=== PATIENT | male | born 1985 | race Caucasian/White ===

== ENCOUNTER 2016-07-04 23:54 | Observation (INO) | payer SELFPAY ==
[~2016-07-04] VITALS: Ht 185.4 cm; Wt 113.5 kg
[2016-07-04] MEDS ORDERED: SODIUM CHLOR 0.9% 1000 ML INJ 1,000 ML IV SCH (23:59)
[2016-07-05] VITALS (14 sets, daily range): BP systolic 103–141; BP diastolic 54–86; PULSE 68–122; RESP 17–20; TEMP 97.2–98.3; O2SAT 94–99
[2016-07-05] MEDS ORDERED: FAMOTIDINE 20 MG/2 ML VIAL IV PUSH ONE
[2016-07-05] MEDS ORDERED: diphenhydrAMINE HCL 50 MG/ML VIAL IVP ONE
[2016-07-05] MEDS ORDERED: methylPREDNISolone SOD SUCC 125 MG/2 ML VIAL IVP ONE
[2016-07-05] MEDS ORDERED: ONDANSETRON HCL 4 MG/2 ML VIAL IV PUSH ONE
[2016-07-05] MEDS ORDERED: RESP: ALBUTEROL 2.5 MG/3 ML NEB (SCH) INH ONE
[2016-07-05] MEDS: RESP: ALBUTEROL 2.5 MG/3 ML NEB (PRN) ONE ×2 (00:09→00:25)
[2016-07-05 00:32] LABS: AUTOMATED NEUTROPHIL # 3.1 TH/MM3 (1.8-7.7); BASOPHIL % 0.2 % (0.0-2.0); EOSINOPHIL # 0.1 TH/MM3 (0-0.4); EOSINOPHIL % 0.9 % (0.0-4.0); HEMO FLAGS DIFF FINAL; LYMPH % 55.1 % (9.0-44.0); LYMPHOCYTE # 4.6 TH/MM3 (1.0-4.8); MEAN CELL VOLUME 88.3 FL (80.0-100.0); MEAN CORPUSCULAR HEMOGLOBIN 28.5 PG (27.0-34.0); MEAN CORPUSCULAR HGB CONC 32.3 % (32.0-36.0); MONO % 6.1 % (0.0-8.0); NEUT % 37.7 % (16.0-70.0); PLATELET COUNT 277 TH/MM3 (150-450); RED BLOOD COUNT 6.12 MIL/MM3 (4.50-5.90); WHITE BLOOD COUNT 8.3 TH/MM3 (4.0-11.0)
[2016-07-05] MEDS ORDERED: SODIUM CHLOR 0.9% 1000 ML INJ 1,000 ML IV SCH ×2 (00:49)
[2016-07-05] MEDS ORDERED: ONDANSETRON HCL 4 MG/2 ML VIAL IM ONE (01:00)
[2016-07-05] MEDS ORDERED: methylPREDNISolone SOD SUCC 125 MG/2 ML VIAL IM ONE (01:00)
[2016-07-05] MEDS ORDERED: diphenhydrAMINE HCL 50 MG/ML VIAL IM ONE (01:00)
[2016-07-05] MEDS ORDERED: SODIUM CHLORIDE 0.9% FLUSH 5 ML FLUSH IVF PRN ×3 (01:00→02:45)
[2016-07-05] MEDS ORDERED: EPINEPHrine HCL (1:1000) 1 MG/ML VIAL IM ONE ×2 (01:00)
[2016-07-05] MEDS ORDERED: LORazepam 2 MG/ML VIAL ONE (01:05)
[2016-07-05] MEDS: RESP: ALBUTEROL 2.5 MG/3 ML NEB (SCH) INH ×3 (01:15→01:57)
[2016-07-05 02:04] LABS: POTASSIUM 3.9 MEQ/L (3.5-5.1)
[2016-07-05 02:07] LABS: BICARBONATE 26.5 MEQ/L (21.0-32.0)
[2016-07-05] MEDS ORDERED: LORazepam 2 MG/ML VIAL IM ONE (02:15)
[2016-07-05] MEDS ORDERED: SODIUM CHLORIDE 0.9% FLUSH 5 ML FLUSH FLUSH PRN (02:30)
[2016-07-05] MEDS ORDERED: methylPREDNISolone SOD SUCC 40 MG/1 ML VIAL IV PUSH PRN (02:30)
[2016-07-05] MEDS ORDERED: NALOXONE HCL 0.4 MG/ML AMP IV PRN (02:30)
[2016-07-05] MEDS ORDERED: diphenhydrAMINE HCL 50 MG/ML VIAL IV PUSH PRN (02:30)
--- NOTE | 2016-07-05 03:42 | PD ---
HPI Chief Complaint: Allergic/Adverse Reaction Time Seen by Provider: 23:59 Travel History International Travel<30 days: No Contact w/Intl Traveler<30days: No Traveled to known affect area: No History of Present Illness HPI 30-year-old male presents to the emergency department by private transportation for acute allergic reaction onset just prior to arrival to the emergency department. Patient is able to speak complains of lip tongue and throat swelling along with generalized urticaria nausea vomiting and feeling as if he might pass out. No chest pain. Patient does complain of shortness of breath. No abdominal pain. Patient has had nausea and vomiting. Prior history of similar type of allergic reaction to molds, cat dander, and bee stings. Patient states drank Propel just prior to arrival to the emergency department and just prior to onset of symptoms. Patient was also exposed to cat dander earlier in the day but not just prior to arrival to the emergency department. Patient also exposed to reported droppings as has moist as pets. Patient has known allergy to molds. PFSH Past Medical History Narrative Medical Asthma allergic reactions open-heart surgery for possible cardiac aneurysm tube thoracostomy tobacco use substance abuse; nursing notes reviewed Asthma: Yes (WHEN A CHILD) Cancer: No Diminished Hearing: No Endocrine: No Genitourinary: No Immune Disorder: No Musculoskeletal: Yes Neurologic: No Psychiatric: No Respiratory: Yes Immunizations Current: Yes Tetanus Vaccination: Unknown Influenza Vaccination: No Past Surgical History Cardiac Surgery: Yes Other Surgery: Yes (OPEN HEART, 2 CHEST TUBE'S) Social History Alcohol Use: No Tobacco Use: Yes (1 PPD) Substance Use: Yes (opiates) Allergies-Medications (Allergen,Severity, Reaction): Coded Allergies: Cat Dander (Verified Allergy, Severe, 07/05/16) Bee Sting (Unverified Adverse Reaction, Severe, SWELLING -SOB, 07/05/16) Reported Meds & Prescriptions Reported Meds & Active Scripts Active No Active Prescriptions or Reported Medications Review of Systems Except as stated in HPI: all other systems reviewed are Neg General / Constitutional: No: Fever, Chills HENT: No: Congestion Cardiovascular: No: Chest Pain or Discomfort Respiratory: Positive: Shortness of Breath, Wheezing Gastrointestinal: Positive: Nausea, Vomiting, No: Diarrhea, Abdominal Pain Genitourinary: No: Flank Pain Musculoskeletal: No: Myalgias, Arthralgias Skin: Positive Rash, Positive Itching, Positive Hives Neurologic: Positive: Weakness, Dizziness, No: Syncope Psychiatric: Positive: Anxiety Endocrine: No: Heat Intolerance Hematologic/Lymphatic: No: Easy Bruising Physical Exam Narrative GENERAL: Well-developed well-nourished male in obvious distress, respiratory distress with diffuse urticaria and visible lip angioedema without stridor. SKIN: Warm and dry. HEAD: Atraumatic. Normocephalic. EYES: Pupils equal and round. No scleral icterus. Bilateral injection without drainage. ENT: No nasal bleeding or discharge. Mucous membranes pink and moist. Lips edema mild glossal edema airway is patent. NECK: Trachea midline. No JVD. CARDIOVASCULAR: Increased Regular rate and rhythm. RESPIRATORY: No accessory muscle use. Clear to auscultation. Breath sounds equal bilaterally. Bilateral wheezing. GASTROINTESTINAL: Abdomen soft, non-tender, nondistended. Hepatic and splenic margins not palpable. MUSCULOSKELETAL: Extremities without clubbing, cyanosis, or edema. No obvious deformities. NEUROLOGICAL: Awake and alert. No obvious cranial nerve deficits. Motor grossly within normal limits. Five out of 5 muscle strength in the arms and legs. Normal speech. PSYCHIATRIC: Appropriate mood and affect; insight and judgment normal. Data Data Last Documented VS Vital Signs Date Time Temp Pulse Resp B/P Pulse Ox O2 Delivery O2 Flow Rate FiO2 07/05/16 01:55 96 Nasal Cannula 2.00 07/05/16 01:45 94 18 125/73 Orders Basic Metabolic Panel (Bmp) (07/04/16 23:59) Complete Blood Count With Diff (07/04/16 23:59) Ecg Monitoring (07/04/16 23:59) Iv Access Insert/Monitor (07/04/16 23:59) Oximetry (07/04/16 23:59) Diphenhydramine Inj (Benadryl Inj) (07/05/16 00:00) Methylprednisolone So Succ Inj (Solumedr (07/05/16 00:00) Famotidine Inj (Pepcid Inj) (07/05/16 00:00) Albuterol Neb (Albuterol Neb) (07/05/16 00:00) Sodium Chlor 0.9% 1000 Ml Inj (Ns 1000 M (07/04/16 23:59) Sodium Chloride 0.9% Flush (Ns Flush) (07/05/16 00:00) Epinephrine (1:1000) Inj (Adrenalin (1:1 (07/05/16 00:00) Ondansetron Inj (Zofran Inj) (07/05/16 00:00) Albuterol Neb (Albuterol Neb) (07/05/16 00:24) Diphenhydramine Inj (Benadryl Inj) (07/05/16 01:00) Methylprednisolone So Succ Inj (Solumedr (07/05/16 01:00) Albuterol Neb (Albuterol Neb) (07/05/16 01:00) Sodium Chlor 0.9% 1000 Ml Inj (Ns 1000 M (07/05/16 00:49) Sodium Chlor 0.9% 1000 Ml Inj (Ns 1000 M (07/05/16 00:49) Sodium Chloride 0.9% Flush (Ns Flush) (07/05/16 01:00) Epinephrine (1:1000) Inj (Adrenalin (1:1 (07/05/16 01:00) Ondansetron Inj (Zofran Inj) (07/05/16 01:00) Lorazepam Inj (Ativan Inj) (07/05/16 01:05) Lorazepam Inj (Ativan Inj) (07/05/16 02:15) Place In Observation (07/05/16 ) Vital Signs (Adult) Q4H (07/05/16 02:25) Activity Oob Ad Jennifer (07/05/16 02:25) Tight Rope Walker / Telemetry .CONTINUOUS (07/05/16 02:25) Diet Heart Healthy (07/05/16 Breakfast) Sodium Chloride 0.9% Flush (Ns Flush) (07/05/16 02:30) Sodium Chloride 0.9% Flush (Ns Flush) (07/05/16 09:00) Naloxone Inj (Narcan Inj) (07/05/16 02:30) Methylprednisolone So Succ Inj (Solumedr (07/05/16 02:30) Diphenhydramine Inj (Benadryl Inj) (07/05/16 02:30) Admit Order (Ed Use Only) (07/05/16 ) ^ Saline Lock (07/05/16 02:44) Resp Oxygen Josue C Titrat 1-4 L (07/05/16 ) ^ Notify Dr: Other (07/05/16 02:44) Sodium Chloride 0.9% Flush (Ns Flush) (07/05/16 09:00) Sodium Chloride 0.9% Flush (Ns Flush) (07/05/16 02:45) Labs Laboratory Tests Test 07/05/16 07/05/16 00:25 01:40 White Blood Count 8.3 TH/MM3 Red Blood Count 6.12 MIL/MM3 Hemoglobin 17.4 GM/DL Hematocrit 54.0 % Mean Corpuscular Volume 88.3 FL Mean Corpuscular Hemoglobin 28.5 PG Mean Corpuscular Hemoglobin 32.3 % Concent Red Cell Distribution Width 13.0 % Platelet Count 277 TH/MM3 Mean Platelet Volume 9.0 FL Neutrophils (%) (Auto) 37.7 % Lymphocytes (%) (Auto) 55.1 % Monocytes (%) (Auto) 6.1 % Eosinophils (%) (Auto) 0.9 % Basophils (%) (Auto) 0.2 % Neutrophils # (Auto) 3.1 TH/MM3 Lymphocytes # (Auto) 4.6 TH/MM3 Monocytes # (Auto) 0.5 TH/MM3 Eosinophils # (Auto) 0.1 TH/MM3 Basophils # (Auto) 0.0 TH/MM3 CBC Comment DIFF FINAL Differential Comment Sodium Level 141 MEQ/L Potassium Level 3.9 MEQ/L Chloride Level 104 MEQ/L Carbon Dioxide Level 26.5 MEQ/L Anion Gap 11 MEQ/L Blood Urea Nitrogen 21 MG/DL Creatinine 1.20 MG/DL Estimat Glomerular Filtration 71 ML/MIN Rate Random Glucose 168 MG/DL Calcium Level 8.6 MG/DL MDM Medical Decision Making Medical Screen Exam Complete: Yes Emergency Medical Condition: Yes Medical Record Reviewed: Yes Interpretation(s) CBC & BMP Diagram 07/05/16 00:25 07/05/16 01:40 Vital Signs Date Time Temp Pulse Resp B/P Pulse Ox O2 Delivery O2 Flow Rate FiO2 07/05/16 01:55 96 Nasal Cannula 2.00 07/05/16 01:45 94 18 125/73 97 Nasal Cannula 2 07/05/16 01:45 94 18 97 Nasal Cannula 2 07/05/16 01:15 122 20 113/60 97 Nasal Cannula 2 07/05/16 00:45 104 20 139/77 94 Nasal Cannula 2 07/05/16 00:25 93 Nasal Cannula 2 07/05/16 00:05 119 20 97 Room Air 07/05/16 00:05 20 97 Room Air 07/05/16 00:00 119 20 111/63 97 Differential Diagnosis Anaphylaxis, acute allergic reaction, angioedema Narrative Course Patient placed on b2b sales consultant and supplemental oxygen epinephrine 1-1000 0.3 cc ordered IM and then additional Solu-Medrol 125 mg IV Benadryl 50 mg IV and Pepcid 40 mg IV and normal saline 1 L bolus patient also administered albuterol. Patient very difficult for IV access after multiple sticks able to obtain peripheral IV access to the right foot and left foot; unable to successfully obtain a peripheral external jugular IV access; patient subsequently required central line insertion to the right femoral vein for ongoing IV medications and IV fluids due to difficulty obtaining IV access successfully medications were also administered IM as well as IV Patient with good response to multiple medications and updraft treatments and IV fluids; patient aware plan for observation admission for ongoing Benadryl Solu-Medrol and Pepcid and as needed epinephrine as well as IV fluids Case discussed with on-call [facility] for observation admission Physician Communication Physician Communication case discussed with Dr Pike ---obs admission Diagnosis Primary Impression: Acute allergic reaction Qualified Code: T78.40XA - Acute allergic reaction, initial encounter Additional Impression: Anaphylactic reaction Qualified Code: T78.2XXA - Anaphylactic reaction, initial encounter Admitting Information Admitting Physician Requests: Observation Scripts No Active Prescriptions or Reported Meds Lillie Schofield MD Jul 05, 2016 03:41
[2016-07-05] MEDS ORDERED: SODIUM CHLORIDE 0.9% FLUSH 5 ML FLUSH IVF SCH (09:00)
[2016-07-05] MEDS ORDERED: SODIUM CHLORIDE 0.9% FLUSH 5 ML FLUSH FLUSH SCH (09:00)
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
[2016-07-05] MEDS ORDERED: EPIN1INJ19 SQ (13:32)
[2016-07-05] MEDS ORDERED: ZANT150T2 PO (13:32)
[2016-07-05] MEDS ORDERED: PRED5PAK PO (13:32)
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
[2016-07-05] MEDS ORDERED: EPIN1INJ17 SQ (15:02)
== END 2016-07-05 15:44 | disposition home or self-care (01) ==
LOC: PHED 23:54 → PHEDA 07-05 02:46 → PHEDH 07-05 06:45 → PH3A 07-05 10:22
PROVIDERS: ADMIT Family Medicine; ATTEND Family Medicine
DX: T78.40XA Allergy, unspecified, initial encounter (principal); T78.2XXA Anaphylactic shock, unspecified, initial encounter; L50.9 Urticaria, unspecified; J45.909 Unspecified asthma, uncomplicated; F17.210 Nicotine dependence, cigarettes, uncomplicated
CPT/HCPCS: 36556; 80048; 85025; 94640; 94664; 96361; 96372; 96374; 96375; 99291; G0378; J1200; J2060; J2405; J2930; J7030; J7613; J0171